=== PATIENT | male | born 1945 | race Caucasian/White ===

== ENCOUNTER 2021-11-03 10:13 | Outpatient (CLI) | payer MEDICARE ==
[2021-11-03 23:06] LABS: SARS-CoV-2 PCR by NAA Not Detected (NotDetected)
== END 2021-11-03 10:14 | disposition home or self-care (01) ==
LOC: CSHLAB 10:13
PROVIDERS: ATTEND Internal Medicine Critical Care Medicine
DX: Z20.822 Contact with and (suspected) exposure to COVID-19 (principal)
CPT/HCPCS: U0003; U0005

== ENCOUNTER 2021-11-10 09:06 | Outpatient (CLI) | payer MEDICARE ==
[2021-11-10 19:51] LABS: SARS-CoV-2 PCR by NAA Not Detected (NotDetected)
== END 2021-11-10 09:07 | disposition home or self-care (01) ==
LOC: CSHLAB 09:06
PROVIDERS: ATTEND Internal Medicine Critical Care Medicine
DX: Z20.822 Contact with and (suspected) exposure to COVID-19 (principal)
CPT/HCPCS: U0003; U0005

== ENCOUNTER 2021-11-13 15:27 | Outpatient (CLI) | payer MEDICARE | END 2021-11-13 15:28 | disposition home or self-care (01) | LOC: CSHCP 15:27 | PROVIDERS: ATTEND Internal Medicine Critical Care Medicine | DX: J44.9 Chronic obstructive pulmonary disease, unspecified (principal) | CPT/HCPCS: 94060; 94726; 94729; 94760 ==